=== PATIENT | male | born 1995 | race Two or more races ===

== ENCOUNTER 2017-09-24 04:03 | Emergency (ER) | payer SELFPAY ==
[~2017-09-24] VITALS: Ht 180.3 cm; Wt 90.7 kg
[2017-09-24 06:25] VITALS: BP 120/72
[2017-09-24] MEDS ORDERED: IBUPROFEN 800 MG TAB PO ONE (06:45)
== END 2017-09-24 07:20 | disposition home or self-care (01) ==
LOC: ER 04:07
DX: S83.8X1A Sprain of other specified parts of right knee, initial encounter (principal); Y08.89XA Assault by other specified means, initial encounter; Y93.89 Activity, other specified; Y99.8 Other external cause status; Y92.89 Other specified places as the place of occurrence of the external cause
CPT/HCPCS: 73560